=== PATIENT | female | born 1990 ===

== ENCOUNTER 2022-08-04 17:14 | Emergency (ER) | payer SELFPAY ==
[~2022-08-04] VITALS: Ht 157.5 cm; Wt 117.0 kg
[2022-08-04] MEDS ORDERED: NS IV 1000 ML 1,000 ML IV STA (17:52)
--- NOTE | 2022-08-04 17:56 | ED Abdominal Pain ---
General Chief Complaint: Abdominal/GI Problems Stated Complaint: ABD PAIN Source of Information: Patient Exam Limitations: Language Barrier (RENETTA CHRISTIAN MD) History of Present Illness Date Seen by Provider: Aug 04, 2022 Time Seen by Provider: 17:42 Initial Comments Patient is a 32-year-old female who presents to the emergency room with family chief complaint right upper quadrant abdominal pain, nausea and vomiting. She has had the symptoms for about a month. She has had a gallbladder ultrasound at [facility] but does not know the results. She states she ate a tortilla, scrambled eggs with cream at 11:00 this morning. Had onset of pain at noon which has been constant ever since. She did have an episode of nausea and vomiting earlier this afternoon. She states she is out of pain medications. Her last menstrual cycle was on 16 July. She is not on control. She states eating makes the pain worse nothing makes it any better. She denies black or bloody stools, she denies burning with urination. She states the pain radiates down into her lower abdomen. Her only prior surgery is a 9 years ago. No fevers but she does endorse chills. No allergies to medications. Does not drink, smoke or do recreational drugs. Currently rating her pain a "9" Timing/Duration: Other (1 month, worse in the last 2-3 days) Severity/Quality: Severe ("9"), Aching Location: RUQ Radiation: Back (right flank) Activities at Onset: None Modifying Factors: Worsens With Eating Associated Symptoms: Back Pain, Nausea/Vomiting (RENETTA CHRISTIAN MD) Allergies and Home Medications Allergies Coded Allergies: No Known Drug Allergies (Unverified , 08/05/22) Patient Home Medication List Home Medication List Reviewed: Yes (RENETTA CHRISTIAN MD) Ibuprofen (Ibuprofen) 200 Mg Tablet, 200 MG PO Q6H PRN for PAIN, (Reported) Entered as Reported by: Abbi Pitts on 08/05/22 1209 Omeprazole (Omeprazole) 20 Mg Capsule.dr, 20 MG PO DAILY, (Reported) Entered as Reported by: Abbi Pitts on 08/05/22 1209 Discontinued Medications Levofloxacin (Levofloxacin) 500 Mg Tablet, 500 MG PO DAILY Discontinued Reason: No Longer Taking Prescribed by: IVAN WALSH MD on 08/04/221910 Review of Systems Review of Systems Constitutional: see HPI EENTM: No Symptoms Reported Respiratory: No Symptoms Reported Cardiovascular: No Symptoms Reported Gastrointestinal: Abdominal Pain, Nausea, Vomiting Genitourinary: No Symptoms Reported Musculoskeletal: back pain (right flank) Skin: no symptoms reported (RENETTA CHRISTIAN MD) All Other Systems Reviewed Negative Unless Noted: Yes (RENETTA CHRISTIAN MD) Physical Exam Vital Signs Vital Signs - First Documented 08/04/22 17:39 Temp 35.7 Pulse 81 Resp 17 B/P (MAP) 125/92 (103) [facility] Vital Signs Capillary Refill : (RENETTA CHRISTIAN MD) Height/Weight/BMI Height: '" Weight: lbs. oz. kg; BMI Method: General Appearance: WD/WN, mild distress, obese HEENT: PERRL/EOMI Neck: full range of motion Respiratory: lungs clear, normal breath sounds, no respiratory distress, no accessory muscle use Cardiovascular: regular rate, rhythm Gastrointestinal: soft, guarding (voluntary), tenderness (RUQ; + Sparks's sign) Neurologic/Psychiatric: alert, normal mood/affect, oriented x 3 Skin: normal color, warm/dry (RENETTA CHRISTIAN MD) Progress/Results/Core Measures Results/Orders Lab Results Laboratory Tests Test 08/04/22 18:05 08/04/22 18:28 Range/Units White Blood Count 11.9 H 4.3-11.0 10^3/uL Red Blood Count 4.36 3.80-5.11 10^6/uL Hemoglobin 12.5 11.5-16.0 g/dL Hematocrit 38 35-52 % Mean Corpuscular Volume 87 80-99 fL Mean Corpuscular Hemoglobin 29 25-34 pg Mean Corpuscular Hemoglobin Concent 33 32-36 g/dL Red Cell Distribution Width 13.5 10.0-14.5 % Platelet Count 319 130-400 10^3/uL Mean Platelet Volume 9.7 9.0-12.2 fL Immature Granulocyte % (Auto) 0 % Neutrophils (%) (Auto) 76 H 42-75 % Lymphocytes (%) (Auto) 17 12-44 % Monocytes (%) (Auto) 6 0-12 % Eosinophils (%) (Auto) 1 0-10 % Basophils (%) (Auto) 0 0-10 % Neutrophils # (Auto) 9.1 H 1.8-7.8 10^3/uL Lymphocytes # (Auto) 2.1 1.0-4.0 10^3/uL Monocytes # (Auto) 0.7 0.0-1.0 10^3/uL Eosinophils # (Auto) 0.1 0.0-0.3 10^3/uL Basophils # (Auto) 0.0 0.0-0.1 10^3/uL Immature Granulocyte # (Auto) 0.0 0.0-0.1 10^3/uL Sodium Level 138 135-145 MMOL/L Potassium Level 3.8 3.6-5.0 MMOL/L Chloride Level 104 98-107 MMOL/L Carbon Dioxide Level 23 21-32 MMOL/L Anion Gap 11 5-14 MMOL/L Blood Urea Nitrogen 9 7-18 MG/DL Creatinine 0.76 0.60-1.30 MG/DL Estimat Glomerular Filtration Rate 107 BUN/Creatinine Ratio 12 Glucose Level 115 H 70-105 MG/DL Calcium Level 9.2 8.5-10.1 MG/DL Corrected Calcium 9.3 8.5-10.1 MG/DL Total Bilirubin 0.5 0.1-1.0 MG/DL Aspartate Amino Transf (AST/SGOT) 216 H 5-34 U/L Alanine Aminotransferase (ALT/SGPT) 122 H 0-55 U/L Alkaline Phosphatase 110 40-136 U/L Total Protein 7.5 6.4-8.2 GM/DL Albumin 3.9 3.2-4.5 GM/DL Lipase 13 8-78 U/L Urine Color YELLOW Urine Clarity CLEAR Urine pH 6.0 5-9 Urine Specific [place] 1.025 H 1.016-1.022 Urine Protein NEGATIVE NEGATIVE Urine Glucose (UA) NEGATIVE NEGATIVE Urine Ketones NEGATIVE NEGATIVE Urine Nitrite NEGATIVE NEGATIVE Urine Bilirubin 1+ H NEGATIVE Urine Urobilinogen 1.0 < = 1.0 MG/DL Urine Leukocyte Esterase 1+ H NEGATIVE Urine RBC (Auto) NEGATIVE NEGATIVE Urine RBC 0-2 /HPF Urine WBC 2-5 /HPF Urine Squamous Epithelial Cells >50 H /HPF Urine Crystals PRESENT H /LPF Urine Amorphous Sediment RARE JAISON URATES H /LPF Urine Bacteria FEW H /HPF Urine Casts NONE /LPF Urine Mucus MODERATE H /LPF Urine Culture Indicated NO (IVAN WALSH DO) My Orders Orders - IVAN WALSH DO Hydrocodone/Apap 5/325 Tablet (Lortab 5 (08/04/22 19:00) Fentanyl Inj (Sublimaze Injection) (08/04/22 19:00) Levofloxacin Tablet (Levaquin Tablet) (08/04/22 19:15) Rx-Hydrocodone/Apap 5-325 Mg (Rx-Vicodin (08/04/22 19:15) (IVAN WALSH DO) Medications Given in ED (IVAN WALSH DO) Vital Signs/I&O 08/04/22 08/04/22 17:39 19:30 Temp 35.7 Pulse 81 Resp 17 B/P (MAP) 125/92 (103) 120/75 O2 Delivery Room Air 08/05/22 00:00 Intake Total 1000 ml Balance 1000 ml (IVAN WALSH DO) Progress Progress Note : Time: 17:56 Progress Note Care passed to Dr Walsh at shift change with studies pending (RENETTA CHRISTIAN MD) Departure Communication (Admissions) Patient's LFTs are slightly elevated and has a slight leukocytosis as well. She is afebrile and nontoxic, otherwise hemodynamically stable. Pain is controlled after provided IV pain medications here, IV fentanyl. I spoke to Dr. Noel. He states he has clinic in the morning and would like the patient to be discharged with antibiotics, pain medicine and he will see her in the clinic first thing in the morning. He will try to obtain ultrasound imaging from the [facility] clinic and hopefully make treatment decision based on this. The patient is comfortable and agreeable with this disposition at this time. Again she is nontoxic and afebrile. Advised she is unable to tolerate anything by mouth, develops fevers or if her symptoms change in any way she should return to care. (IVAN WALSH DO) Impression Primary Impression: Biliary colic Additional Impression: Elevated LFTs Disposition: HOME, SELF-CARE Condition: Stable Departure-Patient Inst. Referrals: [facility] (PCP/Family) Primary Care Physician FITZ NOEL DO Patient Instructions: Acute Pain, Adult (DC) Add. Discharge Instructions: Please take the antibiotics as prescribed. Take the pain medication as prescribed as needed. Do not drive or make important decisions while taking it as it may make you drowsy. Please do not eat or drink anything after midnight tonight and go to Dr. Noel's clinic at 8 AM tomorrow. The address is been provided for you return to the emergency department for any severe concerns. All discharge instructions reviewed with patient and/or family. Voiced understanding. Por favor, tome los antibiticos segn lo prescrito. [place] el analgsico segn lo recetado segn sea necesario. No conduzca ni tome decisiones importantes mientras lo elizabeth, ya que puede causarle somnolencia. Por favor, no coma ni paula nada despus de la medianoche de esta noche y vaya a la clnica del Dr. Noel a las 8 AM maana. Se gonzalez proporcionado la direccin para que regrese al departamento de emergencias por cualquier inquietud grave. RENETTA CHRISTIAN MD Aug 04, 2022 17:56 IVAN WALSH DO Aug 04, 2022 19:12
[2022-08-04] MEDS ORDERED: DICYCLOMINE 10 MG/ML (BENTYL) 2 ML AMP IM STA (17:57)
[2022-08-04] MEDS ORDERED: ONDANSETRON 4 MG/2 ML (SDV) Z0FRAN IVP ONE (18:00)
[2022-08-04] MEDS ORDERED: fentaNYL INJ 100 MCG/2 ML AMP IVP ONE ×2 (18:00→19:00)
[2022-08-04 18:15] LABS: BASOPHILS % (AUTO) 0 % (0-10); EOSINOPHILS # (AUTO) 0.1 10^3/uL (0.0-0.3); EOSINOPHILS % (AUTO) 1 % (0-10); HEMATOCRIT 38 % (35-52); HEMOGLOBIN 12.5 g/dL (11.5-16.0); LYMPHOCYTES # (AUTO) 2.1 10^3/uL (1.0-4.0); LYMPHOCYTES % (AUTO) 17 % (12-44); MEAN CORPUSCULAR HEMOGLOBIN 29 pg (25-34); MEAN CORPUSCULAR HGB CONC 33 g/dL (32-36); MEAN CORPUSCULAR VOLUME 87 fL (80-99); MEAN PLATELET VOLUME 9.7 fL (9.0-12.2); MONOCYTES # (AUTO) 0.7 10^3/uL (0.0-1.0); MONOCYTES % (AUTO) 6 % (0-12); NEUTROPHILS # (AUTO) 9.1 10^3/uL (1.8-7.8); NEUTROPHILS % (AUTO) 76 % (42-75); PLATELET COUNT 319 10^3/uL (130-400); WHITE BLOOD COUNT 11.9 10^3/uL (4.3-11.0)
[2022-08-04 18:21] LABS: ALBUMIN 3.9 GM/DL (3.2-4.5)
[2022-08-04 18:22] LABS: POTASSIUM 3.8 MMOL/L (3.6-5.0)
[2022-08-04 18:23] LABS: CALCIUM 9.2 MG/DL (8.5-10.1)
[2022-08-04 18:24] LABS: TOTAL PROTEIN 7.5 GM/DL (6.4-8.2)
[2022-08-04 18:26] LABS: BILIRUBIN,TOTAL 0.5 MG/DL (0.1-1.0)
[2022-08-04 18:28] LABS: CREATININE SERUM 0.76 MG/DL (0.60-1.30)
[2022-08-04 18:42] LABS: BILIRUBIN,URINE 1+ (NEGATIVE); CLARITY,URINE CLEAR; COLOR,URINE YELLOW; GLUCOSE, URINE (UA) NEGATIVE (NEGATIVE); KETONES,URINE NEGATIVE (NEGATIVE); LEUKOCYTE ESTERASE ,URINE 1+ (NEGATIVE); NITRITE,URINE NEGATIVE (NEGATIVE); PROTEIN,URINE NEGATIVE (NEGATIVE)
[2022-08-04 18:55] LABS: BACTERIA,URINE FEW /HPF; SQUAMOUS EPITHELIAL CELL,UR >50 /HPF
[2022-08-04 18:56] LABS: AMORPHOUS SEDIMENT,UR RARE AMOR URATES /LPF
[2022-08-04 18:59] LABS: RBC,URINE 0-2 /HPF
[2022-08-04] MEDS ORDERED: HYDROcodone/APAP 5 MG/325 MG (LORTAB) TAB PO ONE (19:00)
[2022-08-04] MEDS ORDERED: LEVO-55 PO (19:11)
[2022-08-04 19:30] VITALS: BP 120/75
[2022-08-05] MEDS ORDERED: OMEP20CA18 PO (12:09)
[2022-08-05] MEDS ORDERED: IBUP-2473 PO (12:09)
== END 2022-08-04 19:30 | disposition home or self-care (01) ==
LOC: ER 17:17
DX: K80.50 Calculus of bile duct without cholangitis or cholecystitis without obstruction (principal); R74.01 Elevation of levels of liver transaminase levels; D72.829 Elevated white blood cell count, unspecified; E66.9 Obesity, unspecified; Z68.42 Body mass index [BMI] 45.0-49.9, adult
CPT/HCPCS: 36415; 80053; 81000; 83690; 84703; 85025

== ENCOUNTER 2022-08-05 11:26 | Outpatient (CLI) | payer SELFPAY ==
[~2022-08-05] VITALS: Ht 157.5 cm; Wt 118.4 kg
[~2022-08-05 11:26] MED LIST: LEVO-55 PO
[2022-08-05] MEDS ORDERED: OMEP20CA18 PO (12:09)
[2022-08-05] MEDS ORDERED: IBUP-2473 PO (12:09)
== END 2022-08-05 12:39 | disposition home or self-care (01) ==
LOC: PREOP 11:26
PROVIDERS: ATTEND Surgery
DX: Z01.818 Encounter for other preprocedural examination (principal)

== ENCOUNTER 2022-08-08 11:21 | Day surgery (SDC) | payer SELFPAY ==
[~2022-08-08] VITALS: Ht 157.5 cm; Wt 118.4 kg
[2022-08-08] VITALS (12 sets, daily range): BP systolic 105–122; BP diastolic 49–87
[~2022-08-08 11:21] MED LIST changes: +IBUP-2473 PO; +OMEP20CA18 PO
[2022-08-08] MEDS ORDERED: BUP/EPI 0.5% 1:200,000 (SENSORCAINE) 30 ML VIAL ONE (11:27)
[2022-08-08] MEDS ORDERED: LIDOCAINE PF 2% 5 ML (XYLOCAINE) VIAL ONE (11:29)
[2022-08-08] MEDS ORDERED: MIDAZOLAM 2 MG/2 ML (VERSED) VIAL ONE (11:29)
[2022-08-08] MEDS ORDERED: SEVOFLURANE (ULTANE) 15 ML INHAL SOLN ONE ×2 (11:29→12:57)
[2022-08-08] MEDS ORDERED: proPOfol 200 MG/20 ML (DIPRIVAN) VIAL IV ONE (11:29)
[2022-08-08] MEDS ORDERED: ONDANSETRON 4 MG/2 ML (SDV) Z0FRAN ONE (11:29)
[2022-08-08] MEDS ORDERED: fentaNYL INJ 100 MCG/2 ML AMP ONE (11:29)
[2022-08-08] MEDS: LACTATED RINGERS 1,000 ML IV PRN ×2 (11:49→13:20)
--- NOTE | 2022-08-08 11:52 | Progress Note-Pre Operative ---
Pre-Operative Progress Note Date H&P Reviewed: Aug 08, 2022 Time H&P Reviewed: 11:45 History & Physical: H&P Reviewed, Patient Examed, No changes noted Pre-Operative Diagnosis: SYMPTOMATIC CHOLELITHIASIS FITZ NOEL DO Aug 08, 2022 11:52
[2022-08-08] MEDS ORDERED: ceFAZolin INJECTION 2,000 MG in NS (IVPB) 50 ML IV ONE (12:00)
[2022-08-08] MEDS ORDERED: ROCURONIUM 50 MG/5 ML (ZEMURON) VIAL IV ONE (12:57)
[2022-08-08] MEDS ORDERED: morphine INJ 10 MG/ML 1ML (SYR OR VIAL) ONE (13:15)
[2022-08-08] MEDS ORDERED: fentaNYL INJ 100 MCG/2 ML AMP IVP ONE (13:30)
[2022-08-08] MEDS ORDERED: MEPERIDINE (DEMEROL) INJ 50 MG/ML IVP ONE (13:30)
[2022-08-08] MEDS ORDERED: morphine INJ 10 MG/ML 1ML (SYR OR VIAL) IVP ONE (13:30)
[2022-08-08] MEDS ORDERED: ONDANSETRON 4 MG/2 ML (SDV) Z0FRAN IVP PRN (13:30)
--- NOTE | 2022-08-08 13:31 | Anesthesia-General Post-Op ---
General Patient Condition Mental Status/LOC: Same as Preop Cardiovascular: Satisfactory Nausea/Vomiting: Absent Respiratory: Satisfactory Pain: Controlled Complications: Absent Post Op Complications Complications None Follow Up Care/Instructions Patient Instructions None needed. Anesthesia/Patient Condition Patient Condition Patient is doing well, no complaints, stable vital signs, no apparent adverse anesthesia problems. No complications reported per nursing. PACO SUTHERLAND CRNA Aug 08, 2022 13:31
--- NOTE | 2022-08-08 14:07 | Progress Note-Post Operative ---
Post-Operative Progess Note Surgeon (s)/Ring Rolling Machine Operator (s) Surgeon FITZ NOEL DO Ring Rolling Machine Operator: Dr. Rubalcava to assist in retraction dissection and closure. Pre-Operative Diagnosis SYMPTOMATIC CHOLELITHIASIS Post-Operative Diagnosis same Procedure & Operative Findings Date of Procedure 08/08/22 Procedure Performed/Findings PROCEDURE: Laparoscopic cholecystectomy with intraoperative cholangiogram. COMPLICATIONS: None. PROCEDURE: The patient was taken to the operating suite and was prepped and draped in sterile fashion. A surgical pause was performed. Just superior to the umbilicus, a 12 mm incision was made. Dissection was taken down to the fascia, which was then scored and grasped with a Alon and the abdomen was then entered. A 0 Vicryl suture was placed in a [id number] fashion and a Alvarado trocar was placed and secured. Pneumoperitoneum was achieved. A 5mm trochar place in the subxyphoid and 2 in the right upper quadrant. The gallbladder was then grasped and elevated. The cystic duct, and cystic artery were then dissected out. Clip was placed on the distal portion of the cystic duct which was then partially transected. An arrow catheter was inserted into the duct. The cholangiogram was then performed. No filing defects and contrast made its way into the duodenum. Catheter removed. Clips were placed on proximal portion of the cystic duct and then the duct was then transected. Clips were placed along the proximal and distal portion of the cystic artery which was then transected. Hook cautery was used to dissect the gallbladder from the gallbladder fossa achieving hemostasis. The gallbladder was placed in an Endobag and removed through the 12 mm trocar site. The abdomen was then reinspected. Copious amounts of irrigation were used to irrigate the abdomen and there were no signs of active bleeding. Hemostasis had been achieved. The 12 mm fascial defect was then closed with 0 Vicryl suture that had been placed in a [id number] fashion. The abdomen was then desufflated, the trocars were removed. The abdomen was then washed and dried. The skin was then closed using 4-0 Monocryl in a subcuticular fashion. The abdomen was washed and dried and Skin Affix was place over incisions. Patient tolerated the procedure well without any complications and was taken to the recovery room in stable condition. Anesthesia Type general Estimated Blood Loss Estimated blood loss (mL): minimal Specimens/Packing Specimens Removed gallbladder FITZ NOEL DO Aug 08, 2022 14:07
[2022-08-08] MEDS ORDERED: ACHD5005 PO (14:09)
[2022-08-08] MEDS ORDERED: DOCU-143 PO (14:09)
--- NOTE | 2022-08-08 14:11 | Discharge Inst-Simple/Standard ---
Discharge Inst-Standard Discharge Medications New, Converted or Re-Newed RX: Transmitted to Pharmacy Patient Instructions/Follow Up Plan of Care/Instructions/FU: 2 weeks [place] Activity as Tolerated: No Discharge Diet: Regular Diet Other Inst to Patient Follow up Appt: Make appointment for 2 weeks. Instructions: No lifting greater than 10 pounds. No strenuous activity. May shower in 24 hours, no tub bath or soaking. Use incentive spirometer at home as directed. No Smoking Skin/Wound Care: You have special glue over incision, it will fall off on it's own. Symptoms to Report: Appetite Changes, Extremity Discoloration, Numbness/Tingling, Swelling Increased, Bleeding Excessive, Eyesight Changes, Pain Increased, Urine Color Change, Constipation(Persistent), Fever over 101 degree F, Pain/Pressure in chest, Urinating Difficulty, Cough Up/Vomit Blood, Heart Beat Irreg/Pounding, Pain/Pressure in jaw, Vaginal Bleeding Increase, Cramps in feet or legs, Lightheadedness, Pain/Pressure in shoulder, Diarrhea(Persistent), Memory Changes Suddenly, Questions/Concerns, Weight gain consecutive days, Dizziness/Fainting, Nausea/Vomiting, Shortness of Breath, Weight gain over 2 pounds. If eyes or skin turn yellow notify physician. If questions or concerns contact your physician Or seek help at emergency department. FITZ NOEL DO Aug 08, 2022 14:11
[2022-08-08] MEDS ORDERED: HYDROcodone/APAP 5 MG/325 MG (LORTAB) TAB PO ONE (15:00)
--- NOTE | 2022-08-08 19:22 | Diagnostic Imaging Report ---
INDICATION: Cholecystectomy. 25.8 seconds of fluoroscopy time was used. Intraoperative views demonstrate normal caliber common bile duct and proximal intrahepatic radicals. There is no filling defect in the common duct. Contrast passes to the duodenum without obstruction. IMPRESSION: Unremarkable operative cholangiogram. Operative cholangiogram performed in the routine fashion with injection of the cystic duct stump in surgery; 62 images were obtained. Dictated by: Dictated on workstation # [id number]
== END 2022-08-08 16:20 | disposition home or self-care (01) ==
LOC: SDC 11:21
PROVIDERS: ATTEND Surgery
DX: K80.10 Calculus of gallbladder with chronic cholecystitis without obstruction (principal); E66.9 Obesity, unspecified; Z68.42 Body mass index [BMI] 45.0-49.9, adult
CPT/HCPCS: 76000; 84703; 87081; 88304